=== PATIENT | male | born 1955 | race Caucasian/White ===

== ENCOUNTER 2019-09-21 21:51 | Emergency (ER) | payer OTHER, SELFPAY ==
[2019-09-21 21:58] VITALS: BP 146/80; PULSE 91; RESP 18; TEMP 37.6; O2SAT 95
[2019-09-21 22:01] VITALS: BP 145/80; PULSE 84; RESP 22; TEMP 37.6; O2SAT 98
[2019-09-21 22:43] VITALS: BP 146/80; PULSE 72; O2SAT 94
[2019-09-21 22:47] LABS: Add Manual Diff / Slide Review NO; Basophils Absolute Auto 0 /uL (0-100); Basophils Percent Auto 0.6 % (0-2); Eosinophils Absolute Auto 200 /uL (0-450); Eosinophils Percent Auto 2.2 % (2-4); Hematocrit 39.6 % (41-53); Hemoglobin 13.7 g/dL (13.5-17.5); Lymphocytes Absolute Auto 1800 /uL (1100-4500); Mean Corpuscular HGB Conc 34.6 % (30-36); Mean Corpuscular Hemoglobin 31.1 PG (26-34); Mean Corpuscular Volume 90.1 fL (80-100); Monocytes Absolute Auto 900 /uL (0-900); Monocytes Percent Auto 11.6 % (3-14); Neutrophils Absolute Auto 4800 /uL (1500-7000); Neutrophils Percent Auto 62.6 % (50-75); Platelet Count 204 X10^3/uL (150-400); Red Blood Cell Count 4.39 X10^6/uL (4.5-5.9); Red Cell Distribution Width 13.2 % (11.6-14.8); White Blood Cell Count 7.7 X10^3/uL (4.5-11.0)
[2019-09-21 22:52] LABS: INR 1.8 (0.9-1.3); Prothrombin Time 20.6 SECONDS (10.1-12.7)
[2019-09-21 22:55] LABS: Lactate (Lactic Acid) 1.7 mmol/L (0.7-2.1)
[2019-09-21 22:58] LABS: Influenza A - CEPHEID Flu A NEGATIVE (NEGATIVE); Influenza B - CEPHEID Flu B NEGATIVE (NEGATIVE)
--- NOTE | 2019-09-21 22:58 | ED_ITS ---
HPI - Skin/Abscess/Foreign Bdy General Chief complaint: Skin/Abscess/Foreign Body Stated complaint: Rash Time Seen by Provider: 09/21/19 22:58 Source: patient Mode of arrival: Ambulatory Limitations: no limitations History of Present Illness HPI narrative: The patient has been ill for 3 days. He initially had fever and myalgia. He developed pain in the right gluteal region. He developed a rash at that spot. The rash is now streaking down the back of his right leg, he has a burning pain in the site. He is no longer suffering fever chills. He has no URI symptoms. He is anticoagulated for right DVT. There is no pain or swelling calf. He has no history of shingles. He has no chronic skin diseases. He has been under lot of stress, he thinks potentially worsen his current situation. He has no chest pain or dyspnea with current symptoms. Related Data Home Medications Medication Instructions Recorded Confirmed ACETAMINOPHEN (#TYLENOL) 500 mg PO Q4HP PRN #0 11/15/11 warfarin [Coumadin] 10 mg PO HS #0 11/15/11 Previous Rx's Medication Instructions Recorded meloxicam [Mobic] 7.5 mg PO BIDCC PRN #10 tab 04/18/17 acyclovir 800 mg PO 5XD #50 tab 09/21/19 hydrocodone-acetaminophen [[place]] 1 tab PO Q4-6H PRN #20 tab 09/21/19 prednisone 60 mg PO DAILY 5 Days #15 tab 09/21/19 Review of Systems Review of Systems ROS Unobtainable: All systems reviewed & are unremarkable except as noted in HPI and below Constitutional Constitutional: Reports as per HPI, Denies chills, Reports fever(s), Denies lethargy and Denies weakness Eyes Eyes: Denies change in vision ENT Ears, Nose, Mouth, and Throat: Denies change in voice and Denies sore throat Cardiovascular Cardiovascular: Denies chest pain, Denies irregular heart rhythm, Denies lightheadedness, Denies palpitations, Denies dyspnea and Denies orthopnea Respiratory Respiratory: Denies cough, Denies dyspnea and Denies wheezing Musculoskeletal Musculoskeletal: Denies back pain Comments: Pain shooting down the right leg is noted HPI. Integumentary/Breasts Skin/Breast: Reports as per HPI, Denies pruritus, Reports erythema and Reports rash Neurologic Neurologic: Denies weakness Psychiatric Psychiatric: Denies anxiety and Denies depression Endocrine Endocrine: Denies palpitations Allergic/Immunologic Allergic/Immunologic: Denies wheezing Patient History Medical History (Updated 09/21/19 @ 23:47 by David Albert MD) Right leg DVT (Acute) Social History (Updated 09/21/19 @ 23:44 by David Albert MD) Smoking Status: Never smoker Exam Initial Vital Signs Initial Vital Signs: Vital Signs Temperature 99.7 F H 09/21/19 21:58 Pulse Rate 91 H 09/21/19 21:58 Respiratory Rate 18 09/21/19 21:58 Blood Pressure 146/80 H 09/21/19 21:58 Pulse Oximetry 95 09/21/19 21:58 Const General: cooperative and well developed Nutritional Appearance: well nourished Resp Effort & Inspection: normal respiratory effort and able to speak in complete sentences Auscultation: clear to auscultation bilaterally, no rales, no rhonchi and no wheezes Cardio Rate: regular rate Rhythm: regular rhythm Heart Sounds: no click, no gallops, no murmurs and no rubs Pulses: normal peripheral pulses Back/Spine/Pelvis Back: CVA tenderness Thoracic/Lumbar Spine: thoracic and lumbar spine normal to inspection Skin General: no rashes or lesions noted, No jaundice and No petechiae Other: Erythematous, vesicular rash initiating from the L5 level, and extending down the posterior leg to his heel. Findings consistent with shingles. No obvious purulence. Neuro General: alert, oriented x3, gait normal and no focal motor deficits Speech: speech normal Extrem General: full ROM, no clubbing, cyanosis or edema, no pedal edema and no calf tenderness Course Course Course Narrative: The patient has shingles. I will start him on acyclovir and prednisone. [place] was provided for pain. He is anticoagulated, I have advised follow-up with his doctor in 2 days to recheck his INR. Orders Ordered: ED Orders 09/21/19 22:10 Influenza A & B (PCR) Stat 09/21/19 22:30 Complete Blood Count AUTO DIFF Stat Comprehensive Metabolic Panel Stat Lactate (Lactic Acid) Stat Procalcitonin Stat Prothrombin Time INR Stat 09/21/19 22:35 Blood Culture Stat Discontinued Medications Hydrocodone Bitart/Acetaminophen (Vicodin 5/325 Prepack) 1 bottle MISC SEEINSTR ONE Stop: 09/21/19 23:24 Acyclovir (Zovirax) 800 mg PO NOW ONE Stop: 09/21/19 23:24 Prednisone (Deltasone) 60 mg PO NOW ONE Stop: 09/21/19 23:24 Vital Signs Vital signs: Vital Signs - 8 hr 09/21/19 21:58 09/21/19 22:01 09/21/19 22:43 Temperature 99.7 F H 99.6 F Pulse Rate 91 H 84 72 Respiratory Rate 18 22 Blood Pressure 145/80 H Blood Pressure [Right Arm] 146/80 H 146/80 H Pulse Oximetry 95 98 94 09/21/19 23:03 Temperature Pulse Rate 77 Respiratory Rate Blood Pressure Blood Pressure [Right Arm] 146/80 H Pulse Oximetry 95 MDM - Skin/Abscess/Foreign Bdy Lab Data Result diagrams: 09/21/19 22:30 09/21/19 22:30 Labs: Lab Results 09/21/19 09/21/19 09/21/19 Range/Units 22:10 22:30 22:30 WBC 7.7 (4.5-11.0) X10^3/uL RBC 4.39 L (4.5-5.9) X10^6/uL Hgb 13.7 (13.5-17.5) g/dL Hct 39.6 L (41-53) % MCV 90.1 (80-100) fL MCH 31.1 (26-34) PG MCHC 34.6 (30-36) % RDW 13.2 (11.6-14.8) % Plt Count 204 (150-400) X10^3/uL Neut % (Auto) 62.6 (50-75) % Lymph % (Auto) 23.0 L (25-40) % [place] % (Auto) 11.6 (3-14) % Eos % (Auto) 2.2 (2-4) % Baso % (Auto) 0.6 (0-2) % Neut # (Auto) 4800 (0770-1485) /uL Lymph # (Auto) 1800 (5491-1227) /uL [place] # (Auto) 900 (0-900) /uL Eos # (Auto) 200 (0-450) /uL Baso # (Auto) 0 (0-100) /uL PT 20.6 H (10.1-12.7) SECONDS INR 1.8 H (0.9-1.3) Sodium (137-145) mmol/L Potassium (3.4-5.1) mmol/L Chloride (98-107) mmol/L Carbon Dioxide (22-32) mmol/L BUN (9-20) mg/dL Creatinine (0.66-1.25) mg/dL Estimated GFR (>60) mL/min BUN/Creatinine Ratio (6-22) Glucose (80-110) mg/dL Lactate (0.7-2.1) mmol/L Calcium (8.4-10.2) mg/dL Total Bilirubin (0.2-1.3) mg/dL AST (17-59) IU/L ALT (<50) IU/L Alkaline Phosphatase (38-126) U/L Total Protein (6.3-8.2) g/dL Albumin (3.5-5.0) g/dL Globulin (1.7-4.1) g/dL Albumin/Globulin Ratio (1.0-2.8) Procalcitonin (<0.5) ng/mL Influenza A (RT-PCR) Flu a negative (NEGATIVE) Influenza B (RT-PCR) Flu b negative (NEGATIVE) 09/21/19 09/21/19 09/21/19 Range/Units 22:30 22:30 22:30 WBC (4.5-11.0) X10^3/uL RBC (4.5-5.9) X10^6/uL Hgb (13.5-17.5) g/dL Hct (41-53) % MCV (80-100) fL MCH (26-34) PG MCHC (30-36) % RDW (11.6-14.8) % Plt Count (150-400) X10^3/uL Neut % (Auto) (50-75) % Lymph % (Auto) (25-40) % [place] % (Auto) (3-14) % Eos % (Auto) (2-4) % Baso % (Auto) (0-2) % Neut # (Auto) (2694-7689) /uL Lymph # (Auto) (8550-7384) /uL [place] # (Auto) (0-900) /uL Eos # (Auto) (0-450) /uL Baso # (Auto) (0-100) /uL PT (10.1-12.7) SECONDS INR (0.9-1.3) Sodium 137 (137-145) mmol/L Potassium 3.3 L (3.4-5.1) mmol/L Chloride 103 (98-107) mmol/L Carbon Dioxide 25 (22-32) mmol/L BUN 18 (9-20) mg/dL Creatinine 0.90 (0.66-1.25) mg/dL Estimated GFR > 60.0 (>60) mL/min BUN/Creatinine Ratio 20.0 (6-22) Glucose 123 H (80-110) mg/dL Lactate 1.7 (0.7-2.1) mmol/L Calcium 8.7 (8.4-10.2) mg/dL Total Bilirubin 0.6 (0.2-1.3) mg/dL AST 45 (17-59) IU/L ALT 49 (<50) IU/L Alkaline Phosphatase 70 (38-126) U/L Total Protein 7.6 (6.3-8.2) g/dL Albumin 3.9 (3.5-5.0) g/dL Globulin 3.7 (1.7-4.1) g/dL Albumin/Globulin Ratio 1.1 (1.0-2.8) Procalcitonin 0.27 (<0.5) ng/mL Influenza A (RT-PCR) (NEGATIVE) Influenza B (RT-PCR) (NEGATIVE) Discharge Plan Departure Patient Disposition: Home Clinical Impression: Shingles Qualifiers: Herpes zoster complications: without complications Qualified Code(s): B02.9 - Zoster without complications Instructions: DI for Shingles Activity Restrictions/Additional Instructions: Take the acyclovir for as prescribed. Prednisone for 5 days as prescribed. [place] every 4 hours as needed for pain. Follow-up with her doctor in 2 days to recheck her INR. Return the ER as necessary. Prescriptions: New acyclovir 800 mg tablet 800 mg PO 5XD Qty: 50 RF: 0 prednisone 20 mg tablet 60 mg PO DAILY 5 Days Qty: 15 RF: 0 hydrocodone-acetaminophen [[place]] 5-325 mg tablet 1 tab PO Q4-6H PRN (Reason: pain) Qty: 20 RF: 0 No Action warfarin [Coumadin] 5 MG tablet 10 mg PO HS Qty: 0 RF: 0 ACETAMINOPHEN (#TYLENOL) 500 mg PO Q4HP PRNQty: 0 RF: 0 meloxicam [Mobic] 7.5 MG tablet 7.5 mg PO BIDCC PRNQty: 10 RF: 0 Referrals: Patricia Moody MD [Primary Care Provider] -
[2019-09-21 23:01] LABS: Alanine Aminotransferase 49 IU/L (<50); Albumin 3.9 g/dL (3.5-5.0); Albumin Globulin Ratio 1.1 (1.0-2.8); Alkaline Phosphatase 70 U/L (38-126); Aspartate Aminotransferase 45 IU/L (17-59); Bilirubin Total 0.6 mg/dL (0.2-1.3); Blood Urea Nitrogen 18 mg/dL (9-20); Calcium 8.7 mg/dL (8.4-10.2); Carbon Dioxide 25 mmol/L (22-32); Chloride 103 mmol/L (98-107); Estimated Glomerular Filt Rate > 60.0 mL/min (>60); Globulin 3.7 g/dL (1.7-4.1); Glucose 123 mg/dL (80-110); HEMOLYSIS < 15 (0-50); Potassium 3.3 mmol/L (3.4-5.1); Sodium 137 mmol/L (137-145); Total Protein 7.6 g/dL (6.3-8.2)
[2019-09-21 23:03] VITALS: BP 146/80; PULSE 77; O2SAT 95
[2019-09-21 23:16] LABS: Procalcitonin 0.27 ng/mL (<0.5)
[2019-09-22] MEDS: ACYCLOVIR 200 MG CAPSULE 800 MG PO (00:01)
[2019-09-22] MEDS: HYDROCODONE/ACET 5/325 PREPACK 1 BOTTLE MISC (00:01)
[2019-09-22] MEDS: predniSONE 20 MG TABLET 60 MG PO (00:01)
[2019-09-22 00:12] VITALS: BP 140/80; PULSE 80; RESP 14; O2SAT 99
== END 2019-09-22 00:13 | disposition home or self-care (01) ==
PROVIDERS: Emergency Provider Emergency Medicine; Family Provider Internal Medicine; PCP Internal Medicine
DX: B02.9 Zoster without complications (principal)
CPT/HCPCS: 36415; 80053; 83605; 84145; 85025; 85610; 87040; 87502; 99283

== ENCOUNTER 2020-08-22 17:04 | Emergency (ER) | payer MEDICARE, OTHER, SELFPAY ==
[2020-08-22] VITALS (14 sets, daily range): BP systolic 110–137; BP diastolic 60–80; PULSE 52–95; RESP 7–26; TEMP 37; O2SAT 94–98
[2020-08-22 17:45] LABS: Alanine Aminotransferase 29 IU/L (<50); Albumin 4.1 g/dL (3.5-5.0); Albumin Globulin Ratio 1.1 (1.0-2.8); Alkaline Phosphatase 79 U/L (38-126); Aspartate Aminotransferase 37 IU/L (17-59); BUN Creatinine Ratio 16.9 (6-22); Bilirubin Total 0.7 mg/dL (0.2-1.3); Blood Urea Nitrogen 14 mg/dL (9-20); Calcium 8.7 mg/dL (8.4-10.2); Carbon Dioxide 28 mmol/L (22-32); Chloride 104 mmol/L (98-107); Estimated Glomerular Filt Rate > 60.0 mL/min (>60); Globulin 3.9 g/dL (1.7-4.1); Glucose 115 mg/dL (80-110); HEMOLYSIS 26 (0-50); Lipase 83 U/L (23-300); Potassium 3.8 mmol/L (3.4-5.1); Sodium 136 mmol/L (137-145)
[2020-08-22 18:07] LABS: Add Manual Diff / Slide Review NO; Basophils Absolute Auto 100 /uL (0-100); Basophils Percent Auto 0.7 % (0-2); Eosinophils Absolute Auto 200 /uL (0-450); Eosinophils Percent Auto 1.6 % (2-4); Hematocrit 41.4 % (41-53); Hemoglobin 14.3 g/dL (13.5-17.5); Lymphocytes Absolute Auto 2900 /uL (1100-4500); Lymphocytes Percent Auto 25.1 % (25-40); Mean Corpuscular HGB Conc 34.5 % (30-36); Mean Corpuscular Hemoglobin 31.3 PG (26-34); Mean Corpuscular Volume 90.9 fL (80-100); Monocytes Absolute Auto 700 /uL (0-900); Monocytes Percent Auto 6.1 % (3-14); Neutrophils Absolute Auto 7700 /uL (1500-7000); Neutrophils Percent Auto 66.5 % (50-75); Platelet Count 255 X10^3/uL (150-400); Red Blood Cell Count 4.56 X10^6/uL (4.5-5.9); Red Cell Distribution Width 13.2 % (11.6-14.8); White Blood Cell Count 11.6 X10^3/uL (4.5-11.0)
[2020-08-22 18:34] LABS: INR 2.3 (0.9-1.3); Prothrombin Time 26.3 SECONDS (10.1-12.7)
[2020-08-22 18:37] LABS: PTT Partial Thromboplastin Tim 42 SECONDS (26.4-36.2)
[2020-08-22 19:03] LABS: Bacteria Urine Occasional (0-1); Culture Indicated Urine Specimen Cultured; RBC Urine 0-1/HPF (0-5/HPF); Squamous Epithelial Cell Urine None Seen (0-5/HPF); WBC Urine 5-10/HPF (0-5/HPF)
--- NOTE | 2020-08-22 19:13 | ED.ABDPAIN ---
HPI - Abdominal Pain General Chief Complaint: Abdominal Pain Stated Complaint: right sided pain moving to back Time Seen by Provider: 08/22/20 19:07 Source: patient and family Mode of arrival: Ambulatory History of Present Illness HPI narrative: Patient here with . Complains intermittent right-sided abdominal pain radiating to right mid back. Hurts with movement. He states does not feel like his kidney stone in the past. No urinary complaints. No fever chills. No nausea vomiting or diarrhea. Has not been seen for this. No prior abdominal surgical history. Patient ate fried gyoza today. Does have diet that has fried fatty greasy foods. Cruciferous stalked vegetables as well. At times worse with eating. No chest pain. No numbness tingling or weakness. MD complaint: abdominal pain and flank pain Related Data Home Medications Medication Instructions Recorded Confirmed ACETAMINOPHEN (#TYLENOL) 500 mg PO Q4HP PRN #0 11/15/11 warfarin [Coumadin] 10 mg PO HS #0 11/15/11 Previous Rx's Medication Instructions Recorded meloxicam [Mobic] 7.5 mg PO BIDCC PRN #10 tab 04/18/17 acyclovir 800 mg PO 5XD #50 tab 09/21/19 hydrocodone-acetaminophen [[place]] 1 tab PO Q4-6H PRN #20 tab 09/21/19 Allergies Allergy/AdvReac Type Severity Reaction Status Date / Time No Known Drug Allergies Allergy Verified 08/22/20 17:10 Review of Systems Review of Systems Narrative: GENERAL: Denies chills, fatigue, malaise, fever, sweats. HEENT: Denies sinus pain, ear pain, sore throat, difficulty swallowing RESPIRATORY: Denies dyspnea, cough CARDIOVASCULAR: Denies chest pain, palpitations, edema, GASTROINTESTINAL: Denies nausea, vomiting, complains abdominal pain, denies diarrhea, constipation, melena. : Denies dysuria, frequency, hematuria MUSCULOSKELETAL: denies muscle or bony pain SKIN: Denies rash, skin lesions NEUROLOGIC: Denies weakness, headache, numbness, change in speech, confusion PSYCHIATRIC: No SI or HI or hallucinations ROS Unobtainable: All systems reviewed & are unremarkable except as noted in HPI and below Patient History Medical History Right leg DVT Social History Smoking Status: Never smoker Smoking Status: Never smoker Exam Narrative Exam Narrative: GENERAL: patient appears stated age. Well-nourished, well-developed patient, in no distress, not toxic not dyspneic HEAD: Normocephalic. EYES: Pupils equal round and reactive. No scleral icterus. ENT: Mucous membranes moist. NECK: Trachea midline. Non tender CARDIOVASCULAR: Regular rate and rhythm without murmurs, gallops, or rubs. RESPIRATORY: Clear to auscultation. Breath sounds equal bilaterally. No wheezes, rales, or rhonchi. GASTROINTESTINAL: Abdomen soft, reproducible tenderness right flank as well as right mid abdomen as well as McBurney point tenderness. Right upper quadrant tenderness as well. Bowel sounds present, no peritoneal signs EXTREMITIES: No gross deformities. BACK: Nontender without deformity or crepitance. No flank tenderness. NEURO: AOx4. SKIN: Warm and dry PSYCH: Not anxious, is cooperative Initial Vital Signs Initial Vital Signs: Vital Signs Temperature 98.6 F 08/22/20 17:07 Pulse Rate 87 08/22/20 17:07 Respiratory Rate 22 08/22/20 17:07 Blood Pressure 137/75 08/22/20 17:07 Pulse Oximetry 97 08/22/20 17:07 Course Course Course Narrative: No new issues during course of stay. Orders Ordered: ED Orders 08/22/20 17:12 Complete Blood Count AUTO DIFF Stat Comprehensive Metabolic Panel Stat Lipase Stat Partial Thromboplastin Time Stat Prothrombin Time INR Stat 08/22/20 18:40 Urine Culture Stat Urine Microscopic Stat 08/22/20 19:12 CT abdomen pelvis w con Stat Discontinued Medications Sodium Chloride (Normal Saline 0.9%) 1,000 mls @ 1,000 mls/hr IV BOLUS ONE Stop: 08/22/20 20:11 Last Infusion: 08/22/20 20:55 Dose: 0 mls/hr Documented by: Admin: 08/22/20 19:31 Dose: 1,000 mls/hr Documented by: DIANA Reevaluation(s) Reevaluation #1: Reviewed with patient results and exam results. He agrees with treatment plan. Will need dietary changes and outpatient gallbladder workup. Referral given to patient Time: 20:47 Vital Signs Vital signs: Vital Signs - 8 hr 08/22/20 17:07 08/22/20 17:17 08/22/20 17:18 Temperature 98.6 F Pulse Rate 87 80 78 Respiratory Rate 22 20 21 Blood Pressure 137/75 134/80 Pulse Oximetry 97 97 97 08/22/20 17:30 08/22/20 17:31 08/22/20 18:00 Temperature Pulse Rate 71 68 63 Respiratory Rate 8 L 8 L 9 L Blood Pressure 110/60 114/60 Pulse Oximetry 96 96 97 08/22/20 18:30 08/22/20 19:00 08/22/20 19:01 Temperature Pulse Rate 95 H 60 56 L Respiratory Rate 26 H 11 L 7 L Blood Pressure 113/64 Pulse Oximetry 95 97 08/22/20 19:31 08/22/20 20:00 08/22/20 20:24 Temperature Pulse Rate 67 86 52 L Respiratory Rate 23 12 Blood Pressure 137/64 Pulse Oximetry 94 97 96 08/22/20 20:30 08/22/20 21:00 Temperature Pulse Rate 53 L 64 Respiratory Rate 13 25 H Blood Pressure 137/64 Pulse Oximetry 98 MDM - Abdominal Pain Differential Diagnosis Differential diagnosis: Likely abdominal pain, acute appendicitis, calculus of kidney, constipation, diverticulitis, pancreatitis, small bowel obstruction and other (Cholecystitis) Lab Data Attestation: I reviewed the patient's lab results. Result diagrams: 08/22/20 17:12 08/22/20 17:12 Labs: Lab Results 08/22/20 08/22/20 08/22/20 Range/Units 17:12 17:12 17:12 WBC 11.6 H (4.5-11.0) X10^3/uL RBC 4.56 (4.5-5.9) X10^6/uL Hgb 14.3 (13.5-17.5) g/dL Hct 41.4 (41-53) % MCV 90.9 (80-100) fL MCH 31.3 (26-34) PG MCHC 34.5 (30-36) % RDW 13.2 (11.6-14.8) % Plt Count 255 (150-400) X10^3/uL Neut % (Auto) 66.5 (50-75) % Lymph % (Auto) 25.1 (25-40) % [place] % (Auto) 6.1 (3-14) % Eos % (Auto) 1.6 L (2-4) % Baso % (Auto) 0.7 (0-2) % Neut # (Auto) 7700 H (0804-0751) /uL Lymph # (Auto) 2900 (7535-8689) /uL [place] # (Auto) 700 (0-900) /uL Eos # (Auto) 200 (0-450) /uL Baso # (Auto) 100 (0-100) /uL PT 26.3 H (10.1-12.7) SECONDS INR 2.3 H (0.9-1.3) APTT 42 H (26.4-36.2) SECONDS Sodium 136 L (137-145) mmol/L Potassium 3.8 (3.4-5.1) mmol/L Chloride 104 (98-107) mmol/L Carbon Dioxide 28 (22-32) mmol/L BUN 14 (9-20) mg/dL Creatinine 0.83 (0.66-1.25) mg/dL Estimated GFR > 60.0 (>60) mL/min BUN/Creatinine Ratio 16.9 (6-22) Glucose 115 H (80-110) mg/dL Calcium 8.7 (8.4-10.2) mg/dL Total Bilirubin 0.7 (0.2-1.3) mg/dL AST 37 (17-59) IU/L ALT 29 (<50) IU/L Alkaline Phosphatase 79 (38-126) U/L Total Protein 8.0 (6.3-8.2) g/dL Albumin 4.1 (3.5-5.0) g/dL Globulin 3.9 (1.7-4.1) g/dL Albumin/Globulin Ratio 1.1 (1.0-2.8) Lipase 83 (23-300) U/L Urine RBC (0-5/HPF) Urine WBC (0-5/HPF) Ur Squamous Epith Cells (0-5/HPF) Urine Bacteria (None) Ur Culture Indicated? 08/22/20 Range/Units 18:40 WBC (4.5-11.0) X10^3/uL RBC (4.5-5.9) X10^6/uL Hgb (13.5-17.5) g/dL Hct (41-53) % MCV (80-100) fL MCH (26-34) PG MCHC (30-36) % RDW (11.6-14.8) % Plt Count (150-400) X10^3/uL Neut % (Auto) (50-75) % Lymph % (Auto) (25-40) % [place] % (Auto) (3-14) % Eos % (Auto) (2-4) % Baso % (Auto) (0-2) % Neut # (Auto) (6011-7509) /uL Lymph # (Auto) (6521-6945) /uL [place] # (Auto) (0-900) /uL Eos # (Auto) (0-450) /uL Baso # (Auto) (0-100) /uL PT (10.1-12.7) SECONDS INR (0.9-1.3) APTT (26.4-36.2) SECONDS Sodium (137-145) mmol/L Potassium (3.4-5.1) mmol/L Chloride (98-107) mmol/L Carbon Dioxide (22-32) mmol/L BUN (9-20) mg/dL Creatinine (0.66-1.25) mg/dL Estimated GFR (>60) mL/min BUN/Creatinine Ratio (6-22) Glucose (80-110) mg/dL Calcium (8.4-10.2) mg/dL Total Bilirubin (0.2-1.3) mg/dL AST (17-59) IU/L ALT (<50) IU/L Alkaline Phosphatase (38-126) U/L Total Protein (6.3-8.2) g/dL Albumin (3.5-5.0) g/dL Globulin (1.7-4.1) g/dL Albumin/Globulin Ratio (1.0-2.8) Lipase (23-300) U/L Urine RBC 0-1/hpf (0-5/HPF) Urine WBC 5-10/hpf H (0-5/HPF) Ur Squamous Epith Cells None seen (0-5/HPF) Urine Bacteria Occasional (0-1) (None) Ur Culture Indicated? Specimen cultured Point of care testing: Urine Dip Bedside Urine Glucose Negative Bedside Urine Bilirubin - Negative Bedside Urine Ketone - Negative Urine Specific Early 1.020 Bedside Urine Occult Blood +/- Bedside Urine pH 6.0 Bedside Urine Protein - Negative Bedside Urine Urobilinogen - Negative Bedside Urine Nitrite - Negative Bedside Urine Leukocytes - Negative Esterase Imaging Data CT scan - abdomen/pelvis: Radiologist's Impression: [address] [id number] Scan ReportSigned Patient: Elio Ballesteros AMR#: [id number]: 5Acct:[id number]/Sex: 65 / MDate of Service: 08/22/20Loc: EDAccession Number: [id number] Procedure: CT abdomen pelvis w con Ordering Provider: Nathen Segura MD PROCEDURE: CT ABDOMEN PELVIS W CON INDICATIONS: IV contrast only/right-sided pain TECHNIQUE: After the administration of intravenous contrast, 5 mm thick sections acquired from the diaphragm to the symphysis. 5 mm coronal and sagittal reformats were acquired. For radiation dose reduction, the following was used: automated exposure control, adjustment of mA and/or kV according to patient size. COMPARISON: [facility], CT, ABDOMEN/PELVIS WITH CONTRAST, 04/18/2017, 16:25. FINDINGS: Image quality: Excellent. ABDOMEN: Lung bases: Lung bases are clear. Heart size is normal. Solid organs: Liver is mildly prominent with steatosis. Gallbladder is unremarkable. Biliary system is non dilated. Pancreas enhances normally. Spleen is normal in size and enhancement. No adrenal nodules. Kidneys demonstrate mild asymmetric left renal atrophy. No obstruction. Peritoneum and bowel: Bowel loops demonstrate normal wall thickness and caliber. No free fluid or air. Minimal scattered diverticula are present without associated inflammatory change. The appendix is unremarkable. Nodes and vessels: No retroperitoneal or mesenteric adenopathy by size criteria. Aorta and inferior vena cava are normal in size. Miscellaneous: Fat containing ventral hernia is present. Mild hiatal hernia. PELVIS: Genitourinary: Bladder wall thickness is normal. Miscellaneous: Bilateral fat containing inguinal hernias are present. Bones: No suspicious bony lesions. No vertebral body compression fractures. L5-S1 lumbar fusion with pars defect at L5 is noted. IMPRESSION: 1. Diverticulosis. 2. Appendix is unremarkable. Dictated by: Raine Boyer M.D. on 08/22/2020 at 19:57 Approved by: Raine Boyer M.D. on 08/22/2020 at 20:01 [facility] Narrative Medical decision making narrative: Appropriate for discharge home. Patient not toxic. Likely gallbladder issue. Needs outpatient HIDA scan and ultrasound. Patient agrees with treatment plan. And dietary changes. Discharge Plan Departure Patient Disposition: Home Clinical Impression: Abdominal pain Qualifiers: Abdominal location: unspecified location Qualified Code(s): R10.9 - Unspecified abdominal pain Instructions: DI for Abdominal Pain-Adult, DI for General Gallbladder Conditions, DI for HIDA Scan, DI for Diverticulosis Activity Restrictions/Additional Instructions: Return if worse or if any questions or concerns. No fried fatty greasy foods. Call provided general surgery office or see family doctor for recheck this week and to schedule for ultrasound of the gallbladder or HIDA scan of the gallbladder. Prescriptions: No Action warfarin [Coumadin] 5 MG tablet 10 mg PO HS Qty: 0 RF: 0 ACETAMINOPHEN (#TYLENOL) 500 mg PO Q4HP PRNQty: 0 RF: 0 meloxicam [Mobic] 7.5 MG tablet 7.5 mg PO BIDCC PRNQty: 10 RF: 0 acyclovir 800 mg tablet 800 mg PO 5XD Qty: 50 RF: 0 hydrocodone-acetaminophen [[place]] 5-325 mg tablet 1 tab PO Q4-6H PRN (Reason: pain) Qty: 20 RF: 0 Referrals: Patricia Moody MD [Primary Care Provider] - Junior Abrams MD [Physician] -
[2020-08-22] MEDS: SODIUM CHLORIDE 0.9% 1,000 ML 1000 ML IV (19:31)
== END 2020-08-22 21:09 | disposition home or self-care (01) ==
PROVIDERS: Emergency Medicine; Emergency Provider Emergency Medicine; Family Provider Internal Medicine; PCP Internal Medicine
DX: R10.9 Unspecified abdominal pain (principal); I82.401 Acute embolism and thrombosis of unspecified deep veins of right lower extremity; Z79.01 Long term (current) use of anticoagulants
CPT/HCPCS: 36415; 74177; 80053; 81003; 81015; 83690; 85025; 85610; 85730; 87086; 96360; 99283; 99284

== ENCOUNTER 2021-05-08 16:57 | Emergency (ER) | payer MEDICARE, OTHER, SELFPAY ==
[2021-05-08 16:59] VITALS: BP 129/82; PULSE 90; RESP 18; TEMP 36.9; O2SAT 98; BMI 48.8
--- NOTE | 2021-05-08 17:22 | ED.GENADULT ---
HPI - General Adult General Chief complaint: Urogenital-Male Stated complaint: LEFT TESTICLE SWELLING PAIN Time Seen by Provider: 05/08/21 17:17 Source: patient Mode of arrival: Ambulatory History of Present Illness HPI narrative: 65-year-old male. Has had a urinary tract infection in the past. Is here for evaluation of swelling and pain to his left testicle. He states he started noticing some symptoms yesterday. He thought it was just a irritation to the area. Over night and then especially today symptoms are worsening. The do seem to be isolated to the left side. No problems urinating. No abdominal pain. No fevers. He is on Coumadin. No trauma. Related Data Home Medications Medication Instructions Recorded Confirmed ACETAMINOPHEN (#TYLENOL) 500 mg PO Q4HP PRN #0 11/15/11 warfarin 5 mg tablet (Coumadin) 10 mg PO HS #0 11/15/11 Previous Rx's Medication Instructions Recorded meloxicam 7.5 mg tablet (Mobic) 7.5 mg PO BIDCC PRN #10 tab 04/18/17 acyclovir 800 mg tablet 800 mg PO 5XD #50 tab 09/21/19 hydrocodone 5 mg-acetaminophen 325 1 tab PO Q4-6H PRN #20 tab 09/20/ mg tablet ([place]) Allergies Allergy/AdvReac Type Severity Reaction Status Date / Time No Known Drug Allergies Allergy Verified 08/22/20 17:10 Review of Systems Constitutional Constitutional: Denies fever(s) Gastrointestinal Gastrointestinal: Denies abdominal pain, Denies nausea and Denies vomiting Genitourinary Genitourinary: Reports system reviewed and no additional complaints, except as documented and Reports as per HPI Integumentary/Breasts Comments: Redness over the left scrotum Neurologic Neurologic: Reports system reviewed and no additional complaints, except as documented Hematologic/Lymphatic On Anticoagulants: Yes Allergic/Immunologic Allergic/Immunologic: Reports system reviewed and no additional complaints, except as documented Patient History Medical History Right leg DVT Social History Smoking Status: Never smoker Smoking Status: Never smoker alcohol intake frequency: 0-2 drinks per day Substance Use Type: does not use Exam Initial Vital Signs Initial Vital Signs: Vital Signs Temperature 98.5 F 05/08/21 16:59 Pulse Rate 90 05/08/21 16:59 Respiratory Rate 18 05/08/21 16:59 Blood Pressure 129/82 05/08/21 16:59 Pulse Oximetry 98 05/08/21 16:59 Const General: cooperative, comfortable and well developed Limitations: mental status not altered HENVA Head: normal to inspection and normocephalic Resp Effort & Inspection: normal respiratory effort Cardio Rate: regular rate GI Inspection: normal to inspection and non-distended Palpation: soft and No tender External: normal external exam, circumcised and no ecchymosis Penis: normal penis Meatus: meatus normal Scrotum: edematous on the left and scrotal swelling on the left Testes: testicular lie normal, epididymal tenderness on the left and testicular tenderness on the left Skin Lesions: no lesions Neuro General: patient alert and patient awake Extrem General: capillary refill normal Psych Appearance: grossly normal and well kempt Course Orders Ordered: ED Orders 05/08/21 17:23 US scrotum Stat Vital Signs Vital signs: Vital Signs - 8 hr 05/08/21 16:59 Temperature 98.5 F Pulse Rate 90 Respiratory Rate 18 Blood Pressure 129/82 Pulse Oximetry 98 Medical Decision Making Lab Data Labs: Urine Dip Bedside Urine Glucose Negative Bedside Urine Bilirubin - Negative Bedside Urine Ketone - Negative Urine Specific [place] 1.030 Bedside Urine Occult Blood - Negative Bedside Urine pH 6.0 Bedside Urine Protein - Negative Bedside Urine Urobilinogen - Negative Bedside Urine Nitrite - Negative Bedside Urine Leukocytes - Negative Esterase Point of care testing: Urine Dip Bedside Urine Glucose Negative Bedside Urine Bilirubin - Negative Bedside Urine Ketone - Negative Urine Specific [place] 1.030 Bedside Urine Occult Blood - Negative Bedside Urine pH 6.0 Bedside Urine Protein - Negative Bedside Urine Urobilinogen - Negative Bedside Urine Nitrite - Negative Bedside Urine Leukocytes - Negative Esterase Imaging Data Scrotal ultrasound: Radiologist's Impression: [address] [address] Ultrasound Report Signed Patient: Elio Ballesteros MR#: [id number] : 1955 Acct:[id number] Age/Sex: 65 / M Date of Service: 05/08/21 Loc: ED Accession Number: [id number] ?? Procedure: US scrotum Ordering Provider: Anthony Bruno D.O. PROCEDURE:? US SCROTUM ? INDICATIONS:? L TESTICULAR PAIN AND SWELLING ? TECHNIQUE:? Real-time scanning was performed of the scrotum and testicles, with image documentation.? Color and pulse Doppler interrogation was performed of both testicles.? ? COMPARISON:? None. ? FINDINGS:? ? Right:? Testicle is normal in size at 3.9 x 2.2 x 2.2 cm, and homogenous in echotexture.? Epididymis is normal in overall size and morphology.? No hydrocele or varicoceles.? Overlying scrotal skin is normal in thickness.? ? Left:? Testicle is normal in size at 4.3 x 3 x 3 cm, and homogeneous in echotexture.? Epididymis is thickened and heterogeneous in appearance with increased vascularity on color Doppler interrogation.? There is a moderate hydrocele.? No varicoceles.? There is asymmetric left scrotal skin thickening measuring up to approximately 0.9 cm. ? Doppler:? Color and pulse Doppler demonstrate patent arterial and venous flow in both testicles.? There is asymmetric increased vascularity within the right testicle on color Doppler interrogation.? ? IMPRESSION:? ? 1. Asymmetric hypervascularity within the left testicle and epididymis with associated epididymal enlargement and heterogeneity.? A moderate left hydrocele is also present as well as overlying scrotal skin thickening.? The constellation of findings are consistent with left epididymo-orchitis.? ? ? Dictated by: Jake Elizabeth M.D. on 05/08/2021 at 18:28 ? ? Approved by: Jake Elizabeth M.D. on 05/08/2021 at 18:32? [facility] Narrative Medical decision making narrative: Patient is not concerned about sexually transmitted infections. Ultrasound today consistent with epididymo-orchitis. I did discuss this with the patient. No indication for antibiotics. We did discuss supportive measures patient was given return precautions and follow-up instructions. He expressed understanding agreement. Discharge Plan Departure Patient Disposition: Home Clinical Impression: Acute epididymo-orchitis Instructions: Epididymitis, Orchitis Activity Restrictions/Additional Instructions: Recommend supportive clothing. You can also place ice over the area. Also recommend anti-inflammatories. Consider taking Pepcid/famotidine to protect her stomach while you were doing this. Continue taking rest your medications as directed. Contact your primary doctor for a follow-up. Return to the emergency department for any new or worsening symptoms Prescriptions: No Action warfarin [Coumadin] 5 MG tablet 10 mg PO HS Qty: 0 RF: 0 ACETAMINOPHEN (#TYLENOL) 500 mg PO Q4HP PRNQty: 0 RF: 0 meloxicam [Mobic] 7.5 MG tablet 7.5 mg PO BIDCC PRNQty: 10 RF: 0 acyclovir 800 mg tablet 800 mg PO 5XD Qty: 50 RF: 0 hydrocodone-acetaminophen [[place]] 5-325 mg tablet 1 tab PO Q4-6H PRN (Reason: pain) Qty: 20 RF: 0 Referrals: Patricia Moody MD [Primary Care Provider] -
--- NOTE | 2021-05-08 17:23 | DI.US.S_ITS ---
PROCEDURE: US SCROTUM INDICATIONS: L TESTICULAR PAIN AND SWELLING TECHNIQUE: Real-time scanning was performed of the scrotum and testicles, with image documentation. Color and pulse Doppler interrogation was performed of both testicles. COMPARISON: None. FINDINGS: Right: Testicle is normal in size at 3.9 x 2.2 x 2.2 cm, and homogenous in echotexture. Epididymis is normal in overall size and morphology. No hydrocele or varicoceles. Overlying scrotal skin is normal in thickness. Left: Testicle is normal in size at 4.3 x 3 x 3 cm, and homogeneous in echotexture. Epididymis is thickened and heterogeneous in appearance with increased vascularity on color Doppler interrogation. There is a moderate hydrocele. No varicoceles. There is asymmetric left scrotal skin thickening measuring up to approximately 0.9 cm. Doppler: Color and pulse Doppler demonstrate patent arterial and venous flow in both testicles. There is asymmetric increased vascularity within the right testicle on color Doppler interrogation. IMPRESSION: 1. Asymmetric hypervascularity within the left testicle and epididymis with associated epididymal enlargement and heterogeneity. A moderate left hydrocele is also present as well as overlying scrotal skin thickening. The constellation of findings are consistent with left epididymo-orchitis. Dictated by: Jake Elizabeth M.D. on 05/08/2021 at 18:28 Approved by: Jake Elizabeth M.D. on 05/08/2021 at 18:32
[2021-05-08 19:15] VITALS: TEMP 36.1
== END 2021-05-08 19:16 | disposition home or self-care (01) ==
PROVIDERS: Emergency Provider Emergency Medicine; Family Provider Internal Medicine; PCP Internal Medicine
DX: N45.3 Epididymo-orchitis (principal)
CPT/HCPCS: 76870; 81003; 99283

== ENCOUNTER → 2022-08-30 07:57 | Outpatient (CLI) | payer MEDICARE, OTHER, SELFPAY ==
--- NOTE | 2022-08-30 | DI.US.S_ITS ---
PROCEDURE: US SCROTUM INDICATIONS: HYDROCELE, UNSPECIFIED TECHNIQUE: Real-time scanning was performed of the scrotum and testicles, with image documentation. Color and pulse Doppler interrogation was performed of both testicles. COMPARISON: Merged With [facility], , US SCROTUM, 05/08/2021, 17:38. FINDINGS: Right: Testicle is normal in size at 4.5 x 2.2 x 2.9 cm, and homogenous in echotexture. Epididymis is normal in overall size and morphology. No hydrocele or varicoceles. Overlying scrotal skin is normal in thickness. Left: Testicle is normal in size at 4.1 x 2.4 x 3.3 cm, and homogeneous in echotexture. Epididymis is thickened at 1.8 cm. Mildly increased vascularity is seen of the epididymis . There is a moderately sized left-sided scrotal fluid collection seen, with internal debris. No varicocele can be seen. Overlying scrotal skin is borderline thickened at 6 mm. Doppler: Color and pulse Doppler demonstrate normal and symmetric arterial flow in both testicles. IMPRESSION: Moderately sized left-sided scrotal fluid collection with internal debris, likely related to a spermatocele. This has decreased in size compared to the prior ultrasound. Mildly increased size and echogenicity seen of the left epididymis. Please consider epididymitis. Dictated by: Ruben Mueller M.D. on 08/30/2022 at 12:51 Approved by: Ruben Mueller M.D. on 08/30/2022 at 12:53
== END ==
PROVIDERS: Family Provider Internal Medicine; PCP Internal Medicine; Referring Provider Internal Medicine; Visit Provider Internal Medicine
DX: N43.3 Hydrocele, unspecified (principal)
CPT/HCPCS: 76870

== ENCOUNTER → 2023-09-01 15:54 | Outpatient (CLI) | payer MEDICARE, OTHER, SELFPAY ==
--- NOTE | 2023-09-01 15:58 | DI.US.S_ITS ---
PROCEDURE: US PERIPH VENOUS LOW EXTREM BI INDICATIONS: PAIN. HISTORY OF CLOTS. TECHNIQUE: Real-time imaging, as well as color and pulse Doppler interrogation, were performed of the deep veins of both legs from the inguinal ligament to the popliteal fossa, with documentation of the visualized calf veins. COMPARISON: US, PVE UNILATERAL RIGHT, 01/18/2009, 11:31. FINDINGS: Right: The common femoral, femoral, popliteal, and the visualized calf veins are normally compressible, and free of intraluminal thrombus. Color and pulse Doppler demonstrate normal phasic intravascular flow. There is normal augmentation response to distal compression maneuver. Left: The common femoral, femoral, popliteal, and the visualized calf veins are normally compressible, and free of intraluminal thrombus. Color and pulse Doppler demonstrate normal phasic intravascular flow. There is normal augmentation response to distal compression maneuver. Machine Operator Cane Cutter seen at the level of the ankle. Complex Vila's cyst measuring up to 3.6 cm. IMPRESSION: 1. No deep venous thrombosis identified within the left lower extremity. 2. Machine Operator Cane Cutter seen at the level of the left ankle. 3. Vila's cyst measuring up to 3.6 cm. Dictated by: Sundeep SCHMITT Interpreted: Marietta Almendarez MD on 09/01/2023 at 21:07 Approved by: Marietta Almendarez M.D. on 09/12/2023 at 11:34
== END ==
PROVIDERS: Family Provider Internal Medicine; PCP Internal Medicine; Referring Provider Internal Medicine; Visit Provider Internal Medicine
DX: M71.22 Synovial cyst of popliteal space [Baker], left knee (principal); I83.92 Asymptomatic varicose veins of left lower extremity; M79.669 Pain in unspecified lower leg
CPT/HCPCS: 93970

== ENCOUNTER 2024-01-11 18:09 | Emergency (ER) | payer MEDICARE, OTHER, SELFPAY ==
[2024-01-11] VITALS (12 sets, daily range): BP systolic 102–197; BP diastolic 53–90; PULSE 63–74; RESP 18; TEMP 37.3; O2SAT 92–97; BMI 52.9
--- NOTE | 2024-01-11 19:26 | ED.NEUROSD ---
HPI - Neuro Symptoms/Deficit General Chief Complaint: Neuro Symptoms/Deficit Stated Complaint: poss damaged spinal fusion Time Seen by Provider: 01/11/24 18:59 Source: patient and family Mode of arrival: Wheelchair History of Present Illness HPI Narrative: 68-year-old male presents for lumbar back pain. Reports history of L5-S1 spinal fusion around 2007. Patient states that he was in bed 3 days ago and rolled over when he felt a loud ?snap?. He has had progressive worsening of lumbar back pain and can barely move due to his discomfort. Has been taking Tylenol and ibuprofen at home without relief. He states he was concerned that he may have dislodged some hardware or disrupted his fusion somehow. He denies bowel or bladder incontinence, denies saddle anesthesia. Reports pain with ambulating but denies lower extremity weakness On Anticoagulants: No Related Data Home Medications Medication Instructions Recorded Confirmed ACETAMINOPHEN (#TYLENOL) 500 mg PO Q4HP PRN ##0 11/15/11 warfarin 5 mg tablet (Coumadin) 10 mg PO HS ##0 11/15/11 Previous Rx's Medication Instructions Recorded meloxicam 7.5 mg tablet (Mobic) 7.5 mg PO BIDCC PRN #10 tabs 04/18/17 acyclovir 800 mg tablet 800 mg PO 5XD #50 tabs 09/21/19 hydrocodone 5 mg-acetaminophen 325 1 tab PO Q4-6H PRN pain #20 tabs 09/20/20 mg tablet (Innis) cyclobenzaprine 10 mg tablet 10 mg PO TID PRN muscle spasm #30 01/11/24 tabs hydrocodone 5 mg-acetaminophen 325 1 tab PO Q8H PRN pain #9 tabs 01/11/24 mg tablet methylprednisolone 4 mg tablets in See Rx Instructions PO .COMPLEX 01/11/24 a dose pack (Medrol (Sher)) #21 ea Allergies Allergy/AdvReac Type Severity Reaction Status Date / Time No Known Drug Allergies Allergy Verified 08/22/20 17:10 Review of Systems Hematologic/Lymphatic On Anticoagulants: No Patient History Medical History Right leg DVT Social History Smoking Status: Never smoker Smoking Status: Never smoker alcohol intake frequency: 0-2 drinks per day Substance Use Type: does not use Exam Initial Vital Signs Initial Vital Signs: Vital Signs Temperature 99.1 F 01/11/24 18:42 Pulse Rate 74 01/11/24 18:42 Respiratory Rate 18 01/11/24 18:42 Blood Pressure 123/72 01/11/24 18:42 Pulse Oximetry 97 01/11/24 18:42 Oxygen Delivery Method Room Air 01/11/24 18:42 Const: Awake, alert, obese, uncomfortable Cardiac: regular rate, regular rhythm RESP: unlabored, clear bilaterally, no wheezing GI: Soft, nontender, nondistended MSK: Sensation intact and equal bilaterally, positive straight leg raise bilaterally Skin: Warm, Dry, intact, no rashes Neuro: AO x3, CN II-XII grossly intact, moves all extremities Course Orders Ordered: Discontinued Medications Dexamethasone (Dexamethasone 10 Mg/Ml Vial) 10 mg IV NOW ONE Stop: 01/11/24 20:26 Last Admin: 01/11/24 20:37 Dose: 10 mg Documented By: AB Diazepam (Diazepam 10 Mg/2 Ml Syringe) 2 mg IV NOW ONE Stop: 01/11/24 20:26 Last Admin: 01/11/24 20:39 Dose: 2 mg Documented By: AB Acetaminophen (Ofirmev) 1,000 mg in 100 mls @ 400 mls/hr IV NOW ONE Stop: 01/11/24 20:39 Last Infusion: 01/11/24 21:03 Dose: Infused Documented By: Admin: 01/11/24 20:35 Dose: 400 mls/hr Documented By: AB Sodium Chloride (Normal Saline 0.9%) 1,000 mls @ 1,000 mls/hr IV BOLUS ONE Stop: 01/11/24 21:24 Last Infusion: 01/11/24 22:15 Dose: Infused Documented By: Admin: 01/11/24 21:02 Dose: 1,000 mls/hr Documented By: AB Ketorolac Tromethamine (Ketorolac 30 Mg/Ml Vial) 15 mg IV NOW ONE Stop: 01/11/24 20:26 Last Admin: 01/11/24 20:38 Dose: 15 mg Documented By: AB Morphine Sulfate (Morphine 4 Mg/Ml Inj) 4 mg IV NOW ONE Stop: 01/11/24 19:19 Last Admin: 01/11/24 19:46 Dose: 4 mg Documented By: HNG Vital Signs Vital signs: Vital Signs - 8 hr 01/11/24 18:42 01/11/24 19:11 01/11/24 19:14 Temperature 99.1 F Pulse Rate 74 71 67 Respiratory Rate 18 Blood Pressure 123/72 Pulse Oximetry 97 97 97 Oxygen Delivery Method Room Air 01/11/24 19:14 01/11/24 19:30 01/11/24 20:00 Temperature Pulse Rate 68 72 Respiratory Rate Blood Pressure 197/90 H Pulse Oximetry 97 96 Oxygen Delivery Method 01/11/24 20:00 01/11/24 20:30 01/11/24 20:30 Temperature Pulse Rate 67 Respiratory Rate Blood Pressure 136/64 129/68 Pulse Oximetry 97 Oxygen Delivery Method 01/11/24 21:00 01/11/24 21:00 01/11/24 21:30 Temperature Pulse Rate 69 Respiratory Rate Blood Pressure 123/57 L 121/57 L Pulse Oximetry 96 Oxygen Delivery Method 01/11/24 21:30 01/11/24 22:00 01/11/24 22:00 Temperature Pulse Rate 68 66 Respiratory Rate 18 Blood Pressure 124/59 L Pulse Oximetry 96 92 Oxygen Delivery Method MDM - Neuro Symptoms/Deficit Lab Data 01/11/24 19:34 01/11/24 19:34 Labs: Lab Results 01/11/24 Range/Units 19:34 WBC 10.8 (4.5-11.0) X10^3/uL RBC 4.30 L (4.5-5.9) X10^6/uL Hgb 13.5 (13.5-17.5) g/dL Hct 39.2 L (41-53) % MCV 91.2 (80-100) fL MCH 31.3 (26-34) PG MCHC 34.3 (30-36) % RDW 13.2 (11.6-14.8) % Plt Count 236 (150-400) X10^3/uL Neut % (Auto) 68.7 (50-75) % Lymph % (Auto) 19.8 L (25-40) % [place] % (Auto) 10.0 (3-14) % Eos % (Auto) 0.5 L (2-4) % Baso % (Auto) 1.0 (0-2) % Neut # (Auto) 7400 H (2176-5492) /uL Lymph # (Auto) 2100 (1431-3335) /uL [place] # (Auto) 1100 H (0-900) /uL Eos # (Auto) 100 (0-450) /uL Baso # (Auto) 100 (0-100) /uL Sodium 136 L (137-145) mmol/L Potassium 4.0 (3.4-5.1) mmol/L Chloride 104 (98-107) mmol/L Carbon Dioxide 30 (22-32) mmol/L BUN 14 (9-20) mg/dL Creatinine 0.92 (0.66-1.25) mg/dL Estimated GFR > 60 (>60) mL/min BUN/Creatinine Ratio 15.2 (6-22) Glucose 100 (80-110) mg/dL Calcium 8.6 (8.4-10.2) mg/dL Total Bilirubin 1.1 (0.2-1.3) mg/dL AST 30 (17-59) IU/L ALT 22 (<50) IU/L Alkaline Phosphatase 70 (38-126) U/L Total Protein 7.9 (6.3-8.2) g/dL Albumin 4.0 (3.5-5.0) g/dL Globulin 3.9 (1.7-4.1) g/dL Albumin/Globulin Ratio 1.0 (1.0-2.8) Urine Dip Bedside Urine Glucose Negative Bedside Urine Bilirubin - Negative Bedside Urine Ketone - Negative Urine Specific [place] 1.015 Bedside Urine Occult Blood - Negative Bedside Urine pH 6 Bedside Urine Protein - Negative Bedside Urine Urobilinogen - Negative Bedside Urine Nitrite - Negative Bedside Urine Leukocytes - Negative Esterase Imaging Data CT - cervical spine: Radiologist's Impression: PROCEDURE: CT LUMBAR SPINE WO CON INDICATIONS: POP IN BACK, SEVERE LUMBAR PAIN, PREV L5-S1 FUSION TECHNIQUE: Noncontrast 3 mm thick sections acquired from the T12 level to the sacrum. Sagittal and coronal reformats were constructed. For radiation dose reduction, the following was used: automated exposure control. COMPARISON: [facility], CT, CT ABDOMEN PELVIS W CON, 08/22/2020, 19:17. FINDINGS: Image quality: Excellent. Bones: Patient is status post prior posterior decompression and fusion at L5-S1 level with fusion hardware and intervertebral spacer in place. There is 1 cm anterolisthesis of L5 on S1 and 4 mm anterolisthesis of L4 on L5. Chronic appearing anterior wedge compression deformity X T12 level is seen with up to 20% loss of T12 vertebral body height anteriorly. No acute vertebral body compression fractures. No suspicious lytic or blastic bony lesions. No pars defects. T12-L1: Within normal limits. L1-L2: Within normal limits. L2-L3: Mild degenerative endplate changes and bilateral facet arthrosis is seen. No significant central canal stenosis or neural foraminal narrowing. L3-L4: Mild degenerative endplate changes are seen. Broad-based disc bulge and bilateral facet arthrosis is seen with mild central canal stenosis and moderate left-sided neural foraminal narrowing. L4-L5: Degenerative endplate changes are seen. Broad-based disc bulge and bilateral facet arthrosis. No significant central canal stenosis. Moderate bilateral neural foraminal narrowing is seen. L5-S1: Postsurgical changes are noted. No significant disc bulge, canal stenosis or neural foraminal narrowing. Soft tissues: No retroperitoneal masses or hematomas. Visualized aorta is normal in caliber. IMPRESSION: 1. Postsurgical changes at L5-S1 level from prior posterior fusion. 1 cm anterolisthesis of L5 on S1. No gross hardware loosening or failure. 2. 4 mm anterolisthesis of L4 on L5. Chronic appearing mild anterior wedge compression deformity at T12 level. No acute compression fracture. No suspicious bony lesions. 3. Mild to moderate degenerative disc disease at L2-3 through L4-5 levels causing various degrees of central canal stenosis and neural foraminal narrowing as described above. Dictated by: Branden Sandoval M.D. on 01/11/2024 at 20:03 Approved by: Branden Sandoval M.D. on 01/11/2024 at 20:08 [facility] Narrative Medical decision making narrative: Uncomfortable but nontoxic patient presenting with lower back pain, concerned that he may have disrupted his spinal fusion somehow. He is neurologically intact, no signs or symptoms of cauda equina, but is quite uncomfortable. Based on patient's reported symptoms we will order CT scan of the lumbar spine. Medications for pain administered. CT shows postsurgical changes without hardware loosening or failure, chronic compression deformity at T12, other [id number] degenerative disc changes seen. Patient reassessed, he was much more comfortable after receiving medications and feels improved. He is relieved to know that his hardware is intact. He states that his previous surgeon has long ago left the practice and he was not followed up with him for many years. I recommended patient follow up with primary care physician if he continues to experience back pain for any subsequent referrals. Short course of pain medication sent to pharmacy of choice. Discharge Plan Departure Patient Disposition: Home Clinical Impression: Acute lumbar back pain Instructions: DI for Lumbar Radiculopathy Activity Restrictions/Additional Instructions: Your CT scan did not show any loosening of the hardware or new fractures. Take the prescribed medications for pain. Short course of pain medications has also been sent to your pharmacy of choice. A SHORT COURSE OF NARCOTIC PAIN MEDICATION HAS BEEN SENT TO YOUR PHARMACY. BE CAREFUL WITH THIS MEDICATION IT MAY CAUSE DROWSINESS AND CONSTIPATION. DO NOT TAKE THIS MEDICATION WITH ALCOHOL OR BEFORE OPERATING HEAVY MACHINERY SUCH YOUR CAR. Prescriptions: New methylprednisolone [Medrol (Sher)] 4 mg tablets,dose pack See Rx Instructions .ROUTE .COMPLEX Qty: 21 0RF Rx Instructions: orally per package directions cyclobenzaprine 10 mg tablet 10 mg PO TID PRN (Reason: muscle spasm) Qty: 30 0RF hydrocodone-acetaminophen 5-325 mg tablet 1 tab PO Q8H PRN (Reason: pain) Qty: 9 0RF No Action warfarin [Coumadin] 5 MG tablet 10 mg PO HS Qty: 0 ACETAMINOPHEN (#TYLENOL) 500 mg PO Q4HP PRNQty: 0 meloxicam [Mobic] 7.5 MG tablet 7.5 mg PO BIDCC PRNQty: 10 0RF acyclovir 800 mg tablet 800 mg PO 5XD Qty: 50 0RF Rx Instructions: space evenly during waking hours hydrocodone-acetaminophen [Innis] 5-325 mg tablet 1 tab PO Q4-6H PRN (Reason: pain) Qty: 20 0RF Referrals: Patricia Moody MD [Primary Care Provider] - Stand Alone Forms: Patient Portal/API
[2024-01-11 19:41] LABS: Add Manual Diff / Slide Review NO; Basophils Absolute Auto 100 /uL (0-100); Eosinophils Absolute Auto 100 /uL (0-450); Eosinophils Percent Auto 0.5 % (2-4); Hematocrit 39.2 % (41-53); Hemoglobin 13.5 g/dL (13.5-17.5); Lymphocytes Absolute Auto 2100 /uL (1100-4500); Lymphocytes Percent Auto 19.8 % (25-40); Mean Corpuscular HGB Conc 34.3 % (30-36); Mean Corpuscular Hemoglobin 31.3 PG (26-34); Mean Corpuscular Volume 91.2 fL (80-100); Monocytes Absolute Auto 1100 /uL (0-900); Neutrophils Absolute Auto 7400 /uL (1500-7000); Neutrophils Percent Auto 68.7 % (50-75); Platelet Count 236 X10^3/uL (150-400); Red Cell Distribution Width 13.2 % (11.6-14.8); White Blood Cell Count 10.8 X10^3/uL (4.5-11.0)
[2024-01-11] MEDS: MORPHINE 4 MG/ML INJ IV (19:46)
[2024-01-11 19:56] LABS: Alanine Aminotransferase 22 IU/L (<50); Alkaline Phosphatase 70 U/L (38-126); Aspartate Aminotransferase 30 IU/L (17-59); BUN Creatinine Ratio 15.2 (6-22); Bilirubin Total 1.1 mg/dL (0.2-1.3); Blood Urea Nitrogen 14 mg/dL (9-20); Calcium 8.6 mg/dL (8.4-10.2); Carbon Dioxide 30 mmol/L (22-32); Chloride 104 mmol/L (98-107); Estimated Glomerular Filt Rate > 60 mL/min (>60); Globulin 3.9 g/dL (1.7-4.1); Glucose 100 mg/dL (80-110); HEMOLYSIS 20 (0-50); Sodium 136 mmol/L (137-145); Total Protein 7.9 g/dL (6.3-8.2)
[2024-01-11] MEDS: ACETAMINOPHEN IV 1,000 MG/100 ML VIAL 400 MG IV (20:35)
[2024-01-11] MEDS: DEXAMETHASONE 10 MG/ML VIAL IV (20:37)
[2024-01-11] MEDS: KETOROLAC 30 MG/ML VIAL 15 MG IV (20:38)
[2024-01-11] MEDS: diazePAM 10 MG/2 ML SYRINGE 2 MG IV (20:39)
[2024-01-11] MEDS: SODIUM CHLORIDE 0.9% 1,000 ML 1000 ML IV (21:02)
== END 2024-01-11 23:21 | disposition home or self-care (01) ==
PROVIDERS: Emergency Provider Emergency Medicine; Family Provider Internal Medicine; PCP Internal Medicine
DX: M54.50 Low back pain, unspecified (principal); Z79.01 Long term (current) use of anticoagulants
CPT/HCPCS: 36415; 51798; 72131; 80053; 81003; 85025; 96361; 96365; 96375; 99284; J0136; J1100; J1885; J2270; J3360